=== PATIENT | female | born 1930 | race Caucasian/White ===

== ENCOUNTER 2021-04-10 09:48 | Emergency (ER) | payer MEDICARE ==
[2021-04-10 11:15] LABS: HEMOGLOBIN 12.3 gm/dl (12.3-15.3); RED BLOOD COUNT 4.03 M/UL (4.00-5.10); WHITE BLOOD COUNT 15.6 K/UL (4.5-11.0)
== END 2021-04-10 17:50 | disposition short-term general hospital (02) ==
LOC: ER1 09:48
PROVIDERS: Family Medicine
DX: E11.65 Type 2 diabetes mellitus with hyperglycemia (principal); E87.1 Hypo-osmolality and hyponatremia; F03.90 Unspecified dementia, unspecified severity, without behavioral disturbance, psychotic disturbance, mood disturbance, and anxiety
CPT/HCPCS: 36600; 80053; 81001; 82009; 82803; 82962; 85025; 93005; 96374; 99285